=== PATIENT | female | born 1990 | race Caucasian/White ===

== ENCOUNTER 2016-07-03 20:29 | Emergency (ER) | payer BC, MEDICAID ==
[2016-07-03 23:40] VITALS: BP 128/80
== END 2016-07-03 23:40 | disposition home or self-care (01) ==
LOC: ED 20:29
DX: S13.4XXA Sprain of ligaments of cervical spine, initial encounter (principal); V43.92XA Unspecified car occupant injured in collision with other type car in traffic accident, initial encounter; Y93.89 Activity, other specified; Y99.8 Other external cause status; Y92.89 Other specified places as the place of occurrence of the external cause